=== PATIENT | male | born 1970 | race Caucasian/White ===

== ENCOUNTER → 2017-11-18 15:36 | Outpatient (REF) | payer MEDICAID, SELFPAY ==
[2017-11-18 18:24] LABS: Amphetamine/Metha Screen,Urine Negative ng/mL (<1000); Barbiturates Screen,Urine Negative ng/mL (<200); Benzodiazepines Screen,Urine Negative ng/mL (<200); Cannabinoid Screen,Urine Negative ng/mL (<50); Cocaine Screen,Urine Negative ng/mL (<300); Methadone Screen,Urine Negative ng/mL (<300); Opiate Screen,Urine Negative ng/mL (<300); Phencyclidine Screen,Urine Negative ng/mL (<25)
== END ==
LOC: LAB 15:36
PROVIDERS: Visit Provider Emergency Medicine
DX: Z79.899 Other long term (current) drug therapy (principal)
CPT/HCPCS: 80305

== ENCOUNTER → 2018-01-02 14:04 | Outpatient (CLI) | payer MEDICAID, SELFPAY ==
[2018-01-02 14:50] LABS: Amphetamine/Metha Screen,Urine Negative ng/mL (<1000); Barbiturates Screen,Urine Negative ng/mL (<200); Benzodiazepines Screen,Urine Negative ng/mL (<200); Cannabinoid Screen,Urine Negative ng/mL (<50); Cocaine Screen,Urine Negative ng/mL (<300); Methadone Screen,Urine Negative ng/mL (<300); Opiate Screen,Urine Negative ng/mL (<300); Phencyclidine Screen,Urine Negative ng/mL (<25)
[2018-01-10 11:08] LABS: Alprazolam Negative (Cutoff=100); Benzodiazepines Positive ng/mL (Cutoff=100); Clonazepam Negative (Cutoff=100); Flurazepam Negative (Cutoff=100); Lorazepam Positive (.); Midazolam Negative (Cutoff=100); Temazepam Negative (Cutoff=100); Triazolam Negative (Cutoff=100)
== END ==
PROVIDERS: Visit Provider Emergency Medicine
DX: Z79.899 Other long term (current) drug therapy (principal)
CPT/HCPCS: 80305; 80346

== ENCOUNTER → 2018-03-31 19:25 | Outpatient (CLI) | payer MEDICAID, SELFPAY ==
[2018-03-31 20:32] LABS: Amphetamine/Metha Screen,Urine Negative ng/mL (<1000); Barbiturates Screen,Urine Negative ng/mL (<200); Benzodiazepines Screen,Urine Negative ng/mL (<200); Cannabinoid Screen,Urine Negative ng/mL (<50); Cocaine Screen,Urine Negative ng/mL (<300); Methadone Screen,Urine Negative ng/mL (<300); Opiate Screen,Urine Negative ng/mL (<300); Phencyclidine Screen,Urine Negative ng/mL (<25)
[2018-04-07 15:16] LABS: Alprazolam Negative (Cutoff=100); Benzodiazepines Positive ng/mL (Cutoff=100); Clonazepam Negative (Cutoff=100); Flurazepam Negative (Cutoff=100); Lorazepam Positive (.); Midazolam Negative (Cutoff=100); Temazepam Negative (Cutoff=100); Triazolam Negative (Cutoff=100)
== END ==
PROVIDERS: Visit Provider Nurse Practitioner Family
DX: Z79.899 Other long term (current) drug therapy (principal)
CPT/HCPCS: 80305; 80346

== ENCOUNTER → 2018-07-07 13:43 | Outpatient (CLI) | payer MEDICAID, SELFPAY ==
[2018-07-07 14:26] LABS: Alanine Aminotransferase 33 U/L (12-78); Albumin Level 3.6 gm/dL (3.4-5.0); Albumin/Globulin Ratio 1.1 (1.1-1.8); Alkaline Phosphatase 67 U/L (46-116); Anion Gap 9.6 mEq/L (5-15); Aspartate Amino Transferase 15 U/L (15-37); Bilirubin,Total 0.4 mg/dL (0.2-1.0); Blood Urea Nitrogen 13 mg/dL (7-18); Carbon Dioxide 31 mmol/L (21.0-32.0); Chloride 99 mmol/L (98-107); Cholesterol 161 mg/dL (140-200); Creatinine,Serum 1.13 mg/dL (0.70-1.30); Estimated Glomerular Filt Rate 70 ml/min (>60); Free T4 (Free Thyroxine) 1.04 ng/dl (0.76-1.46); GFR (African American) 84 ML/MIN (>60); Globulin 3.2 gm/dl (1.3-3.2); Glucose 102 mg/dL (74-106); HDL Cholesterol 27 mg/dL (27-67); LDL Cholesterol 76 mg/dL (0-130); Potassium 4.6 mmoL/L (3.5-5.1); Sodium 135 mmol/L (136-145); Thyroid Stimulating Hormone 2.27 uIU/ml (0.358-3.740); Total Protein,Serum 6.8 gm/dL (6.4-8.2); Triglycerides 290 mg/dL (30-200); VLDL Cholesterol 58 mg/dL (0-40)
[2018-07-07 15:43] LABS: Amphetamine/Metha Screen,Urine Negative ng/mL (<1000); Barbiturates Screen,Urine Negative ng/mL (<200); Basophils # 0.1 K/mm3 (0-0.2); Basophils % 0.7 % (0.1-2.0); Benzodiazepines Screen,Urine Negative ng/mL (<200); Cannabinoid Screen,Urine Negative ng/mL (<50); Cocaine Screen,Urine Negative ng/mL (<300); Eosinophils # 0.1 K/mm3 (0.0-0.4); Eosinophils % 1.8 % (0.1-12.0); Hematocrit 49.6 % (42.0-52.0); Hemoglobin 16.6 g/dL (14.1-18.0); Lymphocytes % 28.1 % (10-50); Mean Corpuscular HGB Conc 33.6 g/dL (31.8-35.4); Mean Corpuscular Volume 89.3 fl (80-94); Mean Platelet Volume 8.7 fl (7.4-10.4); Methadone Screen,Urine Negative ng/mL (<300); Monocytes # 0.3 K/mm3 (0.1-1.0); Monocytes % 4.8 % (1.7-9.3); Neutrophils # 4.6 K/mm3 (1.8-7.8); Neutrophils % 64.6 % (37.0-80.0); Opiate Screen,Urine Negative ng/mL (<300); Phencyclidine Screen,Urine Negative ng/mL (<25); Platelet Count 312 K/mm3 (142-424); Red Blood Count 5.55 M/mm3 (4.60-6.20); Red Cell Distribution Width 13.3 % (11.5-17.5)
[2018-07-08 10:07] LABS: Vitamin D 25 Hydroxy 13.7 ng/mL (30.0-100.0)
== END ==
PROVIDERS: Visit Provider Emergency Medicine
DX: R53.83 Other fatigue (principal); Z79.899 Other long term (current) drug therapy
CPT/HCPCS: 80053; 80061; 80305; 82652; 84439; 84443; 85025

== ENCOUNTER → 2019-08-17 14:07 | Outpatient (CLI) | payer MEDICAID, SELFPAY ==
[2019-08-17 15:15] VITALS: PULSE 78; PULSE 80
== END ==
PROVIDERS: PCP Emergency Medicine; Visit Provider Emergency Medicine
DX: R06.02 Shortness of breath (principal)
CPT/HCPCS: 94060; 94640; 94727; 94729

== ENCOUNTER → 2019-09-27 17:50 | Outpatient (CLI) | payer MEDICAID, SELFPAY ==
[2019-09-27 19:32] LABS: Basophils % 0.5 % (0.1-2.0); Eosinophils # 0.1 K/mm3 (0.0-0.4); Eosinophils % 1.8 % (0.1-12.0); Hematocrit 44.4 % (42.0-52.0); Hemoglobin 15.7 g/dL (14.1-18.0); Lymphocytes % 33.1 % (10-50); Mean Corpuscular HGB Conc 35.5 g/dL (31.8-35.4); Mean Corpuscular Hemoglobin 31.9 pg (27.0-31.2); Mean Corpuscular Volume 89.9 fl (80-94); Mean Platelet Volume 10.1 fl (7.4-10.4); Monocytes # 0.3 K/mm3 (0.1-1.0); Monocytes % 4.6 % (1.7-9.3); Neutrophils # 3.6 K/mm3 (1.8-7.8); Platelet Count 275 K/mm3 (142-424); Red Blood Count 4.94 M/mm3 (4.60-6.20); Red Cell Distribution Width 13.8 % (11.5-17.5); White Blood Count 6.1 K/mm3 (4.8-10.8)
[2019-09-27 20:24] LABS: Alanine Aminotransferase 48 U/L (12-78); Albumin Level 4.5 g/dl (3.5-5.0); Albumin/Globulin Ratio 1.5 (1.1-1.8); Alkaline Phosphatase 77 U/L (38-126); Anion Gap 14.1 mEq/L (5-15); Aspartate Amino Transferase 43 U/L (17-59); Bilirubin,Total 0.4 mg/dl (0.2-1.3); Blood Urea Nitrogen 18 mg/dl (9-20); Calcium 10.8 mg/dl (8.4-10.2); Carbon Dioxide 30 mmol/L (22.0-30.0); Chloride 100 mmol/L (98-107); Chol/HDL Ratio 5.6 (1-3.5); Cholesterol 178 mg/dl (140-200); Estimated Glomerular Filt Rate 80 ml/min (>60); GFR (African American) 97 ML/MIN (>60); Glucose 103 mg/dl (74-100); HDL Cholesterol 32 mg/dl (40-60); Potassium 5.1 mmoL/L (3.5-5.1); Sodium 139 mmol/L (136-145); Total Protein,Serum 7.5 g/dl (6.3-8.2); Triglycerides 241 mg/dl (30-150); VLDL Cholesterol 48 mg/dL (0-40)
[2019-09-27 20:35] LABS: Direct LDL Cholesterol 112.89 mg/dL (100-129)
[2019-09-27 20:41] LABS: T4 (Thyroxine) 10.2 ug/dl (5.53-11.0)
[2019-09-27 20:51] LABS: 25-OH Vitamin D, Total 38.6 ng/mL (30-100)
[2019-09-27 20:54] LABS: Thyroid Stimulating Hormone 1.71 uIU/mL (0.465-4.68)
== END ==
PROVIDERS: Visit Provider Emergency Medicine
DX: J44.9 Chronic obstructive pulmonary disease, unspecified (principal); R53.83 Other fatigue; Z79.899 Other long term (current) drug therapy
CPT/HCPCS: 80053; 80061; 82306; 84436; 84443; 85025

== ENCOUNTER → 2020-03-22 19:11 | Outpatient (CLI) | payer MEDICAID, SELFPAY ==
[2020-03-22 19:41] LABS: Amphetamine/Metha Screen,Urine Negative ng/ml (<1000)
[2020-03-22 19:42] LABS: Barbiturates Screen,Urine Negative ng/ml (<200); Benzodiazepines Screen,Urine Negative ng/ml (<200)
[2020-03-22 19:43] LABS: Cannabinoid Screen,Urine Negative ng/ml (<50)
[2020-03-22 19:44] LABS: Cocaine Screen,Urine Negative ng/ml (<300); Methadone Screen,Urine Negative ng/ml (<300)
[2020-03-22 19:45] LABS: Opiate Screen,Urine Positive ng/ml (<300); Phencyclidine Screen,Urine Negative ng/ml (<25)
== END ==
PROVIDERS: Visit Provider Emergency Medicine
DX: F41.9 Anxiety disorder, unspecified (principal); Z79.899 Other long term (current) drug therapy
CPT/HCPCS: 80305

== ENCOUNTER → 2020-08-14 17:31 | Outpatient (CLI) | payer MEDICAID, SELFPAY ==
[2020-08-14 19:07] LABS: Amphetamine/Metha Screen,Urine Negative ng/ml (<1000); Barbiturates Screen,Urine Negative ng/ml (<200)
[2020-08-14 19:08] LABS: Benzodiazepines Screen,Urine Negative ng/ml (<200)
[2020-08-14 19:09] LABS: Cannabinoid Screen,Urine Negative ng/ml (<50); Cocaine Screen,Urine Negative ng/ml (<300)
[2020-08-14 19:10] LABS: Methadone Screen,Urine Negative ng/ml (<300)
[2020-08-14 19:11] LABS: Opiate Screen,Urine Positive ng/ml (<300); Phencyclidine Screen,Urine Negative ng/ml (<25)
== END ==
PROVIDERS: Visit Provider Emergency Medicine
DX: Z79.899 Other long term (current) drug therapy (principal)
CPT/HCPCS: 80305

== ENCOUNTER 2020-08-23 11:00 | Outpatient (RCR) | payer MEDICAID, SELFPAY | END 2020-09-18 14:31 | disposition home or self-care (01) | LOC: PT.CARL 11:00 | PROVIDERS: PCP Emergency Medicine; Visit Provider Pain Medicine Interventional Pain Medicine | DX: M47.816 Spondylosis without myelopathy or radiculopathy, lumbar region (principal); M25.561 Pain in right knee; M25.551 Pain in right hip | CPT/HCPCS: 97110; 97163 ==

== ENCOUNTER → 2020-11-10 13:48 | Outpatient (CLI) | payer MEDICAID, SELFPAY ==
[2020-11-10 13:57] LABS: Basophils # 0.1 K/mm3 (0-0.2); Basophils % 1.1 % (0.1-2.0); Eosinophils # 0.1 K/mm3 (0.0-0.4); Eosinophils % 1.8 % (0.1-12.0); Hematocrit 47.5 % (42.0-52.0); Hemoglobin 15.8 g/dL (14.1-18.0); Lymphocytes # 2.5 K/mm3 (0.7-4.5); Lymphocytes % 39.4 % (10-50); Mean Corpuscular HGB Conc 33.3 g/dL (31.8-35.4); Mean Corpuscular Hemoglobin 31.3 pg (27.0-31.2); Mean Corpuscular Volume 94.1 fl (80-94); Mean Platelet Volume 9.8 fl (7.4-10.4); Monocytes # 0.4 K/mm3 (0.1-1.0); Monocytes % 6.3 % (1.7-9.3); Neutrophils # 3.3 K/mm3 (1.8-7.8); Neutrophils % 51.4 % (37.0-80.0); Platelet Count 298 K/mm3 (142-424); Red Blood Count 5.04 M/mm3 (4.60-6.20); Red Cell Distribution Width 14.3 % (11.5-17.5); White Blood Count 6.4 K/mm3 (4.8-10.8)
[2020-11-10 14:02] LABS: Alanine Aminotransferase 56 U/L (12-78); Albumin Level 4.1 g/dl (3.5-5.0); Albumin/Globulin Ratio 1.3 (1.1-1.8); Alkaline Phosphatase 74 U/L (38-126); Anion Gap 16.8 mEq/L (5-15); Aspartate Amino Transferase 48 U/L (17-59); Bilirubin,Total 0.4 mg/dl (0.2-1.3); Blood Urea Nitrogen 15 mg/dl (9-20); Calcium 9.5 mg/dl (8.4-10.2); Carbon Dioxide 26 mmol/L (22.0-30.0); Chloride 100 mmol/L (98-107); Cholesterol 195 mg/dl (140-200); Estimated Glomerular Filt Rate 79 ml/min (>60); GFR (African American) 96 ML/MIN (>60); Globulin 3.1 g/dL (1.3-3.2); Glucose 118 mg/dl (74-100); HDL Cholesterol 28 mg/dl (40-60); Potassium 4.8 mmoL/L (3.5-5.1); Sodium 138 mmol/L (136-145); Total Protein,Serum 7.2 g/dl (6.3-8.2); Triglycerides 209 mg/dl (30-150); VLDL Cholesterol 42 mg/dL (0-40)
[2020-11-10 14:11] LABS: Amphetamine/Metha Screen,Urine Negative ng/ml (<1000)
[2020-11-10 14:12] LABS: Barbiturates Screen,Urine Negative ng/ml (<200); Benzodiazepines Screen,Urine Negative ng/ml (<200)
[2020-11-10 14:13] LABS: Cannabinoid Screen,Urine Negative ng/ml (<50); Cocaine Screen,Urine Negative ng/ml (<300)
[2020-11-10 14:14] LABS: Methadone Screen,Urine Negative ng/ml (<300)
[2020-11-10 14:15] LABS: Opiate Screen,Urine Positive ng/ml (<300); Phencyclidine Screen,Urine Negative ng/ml (<25)
[2020-11-10 14:20] LABS: 25-OH Vitamin D, Total 30.7 ng/mL (30-100)
[2020-11-10 14:33] LABS: Prostate Specific Ag Screen 1.1 ng/ml (0.0-4.0); Thyroid Stimulating Hormone 2.01 uIU/mL (0.465-4.68)
== END ==
PROVIDERS: Visit Provider Emergency Medicine
DX: F41.9 Anxiety disorder, unspecified (principal); J44.9 Chronic obstructive pulmonary disease, unspecified; E66.9 Obesity, unspecified; R53.83 Other fatigue; M54.9 Dorsalgia, unspecified; Z12.5 Encounter for screening for malignant neoplasm of prostate; Z68.33 Body mass index [BMI] 33.0-33.9, adult
CPT/HCPCS: 80053; 80061; 80305; 82306; 84436; 84443; 85025; G0103

== ENCOUNTER → 2020-11-14 10:13 | Outpatient (CLI) | payer MEDICAID, SELFPAY ==
--- NOTE | 2020-11-14 10:15 | MR_ITS ---
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 3-D MIP and myelographic images are also rendered and reviewed FINDINGS: There is normal alignment. The spinal cord ends at the T12 level. T11-T12: Mild degenerative disc disease. T12-L1: Mild degenerative disc disease with small anterior osteophytes. L1-L2: Unremarkable. L2-L3: Minimal bulging disc with mild facet and ligamentum hypertrophic change with mild bilateral foraminal narrowing not significantly changed. L3-L4: Mild facet and ligamentum hypertrophy not significantly changed. L4-5: Mild bulging disc with facet and ligamentum hypertrophic change. Annular fissure noted. Minimal retrolisthesis of L4 of 3 mm. The bulging disc is slightly eccentric toward the left. There is mild facet and ligamentum hypertrophic change with mild left-sided foraminal narrowing. There is mild broad-based central disc protrusion. Overall not significantly changed. L5-S1: Mild bulging disc slightly eccentric toward the right with moderate right-sided foraminal narrowing which is slightly increased compared to the previous exam.. There is mild facet and ligamentum hypertrophic change. There is mild left-sided foraminal narrowing as well. No extruded herniated disc or bony canal stenosis. IMPRESSION: 1. L2-L3: Minimal bulging disc with mild facet and ligamentum hypertrophic change with mild bilateral foraminal narrowing not significantly changed. 2. L3-L4: Mild facet and ligamentum hypertrophy not significantly changed. 3. L4-5: Mild bulging disc with facet and ligamentum hypertrophic change. Annular fissure noted. Minimal retrolisthesis of L4 of 3 mm. The bulging disc is slightly eccentric toward the left. There is mild facet and ligamentum hypertrophic change with mild left-sided foraminal narrowing. There is mild broad-based central disc protrusion. Overall not significantly changed. 4. L5-S1: Mild bulging disc slightly eccentric toward the right with moderate right-sided foraminal narrowing which is slightly increased compared to the previous exam.. There is mild facet and ligamentum hypertrophic change. There is mild left-sided foraminal narrowing as well. 5. No extruded herniated disc or bony canal stenosis. Dictated by: Misael Chavira MD 11/15/2020 07:38 Misael Chavira MD in [place] 11/15/2020 07:38
== END ==
PROVIDERS: PCP Emergency Medicine; Visit Provider Pain Medicine Interventional Pain Medicine
DX: M47.816 Spondylosis without myelopathy or radiculopathy, lumbar region (principal)
CPT/HCPCS: 72148; 76376

== ENCOUNTER → 2021-01-08 14:55 | Outpatient (CLI) | payer MEDICAID, SELFPAY ==
[2021-01-08 21:50] LABS: Amphetamine/Metha Screen,Urine Negative ng/ml (<1000); Benzodiazepines Screen,Urine Negative ng/ml (<200)
[2021-01-08 21:51] LABS: Barbiturates Screen,Urine Negative ng/ml (<200)
[2021-01-08 21:52] LABS: Cannabinoid Screen,Urine Negative ng/ml (<50); Cocaine Screen,Urine Negative ng/ml (<300)
[2021-01-08 21:53] LABS: Methadone Screen,Urine Negative ng/ml (<300); Opiate Screen,Urine Positive ng/ml (<300)
[2021-01-08 21:54] LABS: Phencyclidine Screen,Urine Negative ng/ml (<25)
== END ==
PROVIDERS: Visit Provider Emergency Medicine
DX: Z79.899 Other long term (current) drug therapy (principal)
CPT/HCPCS: 80305

== ENCOUNTER → 2021-02-06 14:14 | Outpatient (CLI) | payer MEDICAID, SELFPAY ==
[2021-02-06 15:07] LABS: Amphetamine/Metha Screen,Urine Negative ng/ml (<1000); Barbiturates Screen,Urine Negative ng/ml (<200)
[2021-02-06 15:08] LABS: Benzodiazepines Screen,Urine Negative ng/ml (<200); Cannabinoid Screen,Urine Negative ng/ml (<50)
[2021-02-06 15:09] LABS: Cocaine Screen,Urine Negative ng/ml (<300)
[2021-02-06 15:10] LABS: Methadone Screen,Urine Negative ng/ml (<300); Opiate Screen,Urine Positive ng/ml (<300)
[2021-02-06 15:11] LABS: Phencyclidine Screen,Urine Negative ng/ml (<25)
== END ==
PROVIDERS: Visit Provider Emergency Medicine
DX: F41.9 Anxiety disorder, unspecified (principal)
CPT/HCPCS: 80305

== ENCOUNTER → 2021-07-31 11:12 | Outpatient (CLI) | payer MEDICAID, SELFPAY ==
[2021-07-31 14:00] LABS: Opiate Screen,Urine Positive ng/ml (<300); Phencyclidine Screen,Urine Negative ng/ml (<25)
[2021-07-31 14:17] LABS: Amphetamine/Metha Screen,Urine Negative ng/ml (<1000)
[2021-07-31 14:18] LABS: Barbiturates Screen,Urine Negative ng/ml (<200)
[2021-07-31 14:19] LABS: Benzodiazepines Screen,Urine Negative ng/ml (<200)
[2021-07-31 14:20] LABS: Cannabinoid Screen,Urine Negative ng/ml (<50); Cocaine Screen,Urine Negative ng/ml (<300)
[2021-07-31 14:22] LABS: Methadone Screen,Urine Negative ng/ml (<300)
== END ==
PROVIDERS: PCP Emergency Medicine; Visit Provider Emergency Medicine
DX: R10.9 Unspecified abdominal pain (principal); M79.606 Pain in leg, unspecified; G89.29 Other chronic pain
CPT/HCPCS: 80305; 87086

== ENCOUNTER → 2021-10-05 11:00 | Outpatient (CLI) | payer MEDICAID, SELFPAY ==
[2021-10-05 15:35] LABS: Amphetamine/Metha Screen,Urine Negative ng/ml (<1000)
[2021-10-05 15:36] LABS: Barbiturates Screen,Urine Negative ng/ml (<200)
[2021-10-05 15:37] LABS: Benzodiazepines Screen,Urine Negative ng/ml (<200); Cannabinoid Screen,Urine Negative ng/ml (<50)
[2021-10-05 15:38] LABS: Cocaine Screen,Urine Negative ng/ml (<300); Methadone Screen,Urine Negative ng/ml (<300)
[2021-10-05 15:39] LABS: Opiate Screen,Urine Positive ng/ml (<300)
[2021-10-05 15:40] LABS: Phencyclidine Screen,Urine Negative ng/ml (<25)
== END ==
PROVIDERS: PCP Nurse Practitioner Family; Visit Provider Nurse Practitioner Family
DX: M54.50 Low back pain, unspecified (principal); G89.29 Other chronic pain; M79.604 Pain in right leg; M79.605 Pain in left leg
CPT/HCPCS: 80305; 87086

== ENCOUNTER → 2021-10-09 10:00 | Outpatient (CLI) | payer MEDICAID, SELFPAY ==
[2021-10-09 10:49] LABS: Basophils # 0.1 K/mm3 (0-0.2); Eosinophils # 0.1 K/mm3 (0.0-0.4); Eosinophils % 2.5 % (0.1-12.0); Hematocrit 48.6 % (42.0-52.0); Hemoglobin 14.9 g/dL (14.1-18.0); Lymphocytes % 38.5 % (10-50); Mean Corpuscular HGB Conc 30.6 g/dL (31.8-35.4); Mean Corpuscular Hemoglobin 29.8 pg (27.0-31.2); Mean Corpuscular Volume 97.2 fl (80-94); Mean Platelet Volume 8.7 fl (7.4-10.4); Monocytes # 0.3 K/mm3 (0.1-1.0); Monocytes % 5.3 % (1.7-9.3); Neutrophils # 2.7 K/mm3 (1.8-7.8); Neutrophils % 52.7 % (37.0-80.0); Platelet Count 268 K/mm3 (142-424); White Blood Count 5.1 K/mm3 (4.8-10.8)
[2021-10-09 11:24] LABS: Alanine Aminotransferase 39 U/L (12-78); Albumin Level 3.8 g/dl (3.5-5.0); Albumin/Globulin Ratio 1.5 (1.1-1.8); Alkaline Phosphatase 87 U/L (38-126); Anion Gap 11.3 mEq/L (5-15); Aspartate Amino Transferase 39 U/L (17-59); Bilirubin,Total 0.2 mg/dl (0.2-1.3); Blood Urea Nitrogen 11 mg/dl (9-20); Calcium 9.5 mg/dl (8.4-10.2); Carbon Dioxide 29 mmol/L (22.0-30.0); Chloride 102 mmol/L (98-107); Chol/HDL Ratio 6.7 (1-3.5); Cholesterol 175 mg/dl (140-200); Estimated Glomerular Filt Rate 79 ml/min (>60); GFR (African American) 96 ML/MIN (>60); Globulin 2.5 g/dL (1.3-3.2); Glucose 93 mg/dl (74-100); HDL Cholesterol 26 mg/dl (40-60); Potassium 4.3 mmoL/L (3.5-5.1); Sodium 138 mmol/L (136-145); Total Protein,Serum 6.3 g/dl (6.3-8.2); Triglycerides 212 mg/dl (30-150); VLDL Cholesterol 42 mg/dL (0-40)
[2021-10-09 11:41] LABS: 25-OH Vitamin D, Total 30.4 ng/mL (30-100)
[2021-10-10 13:46] LABS: Direct LDL Cholesterol 108 mg/dL (100-129)
== END ==
PROVIDERS: PCP Emergency Medicine; Visit Provider Nurse Practitioner Family
DX: M79.605 Pain in left leg (principal); M79.604 Pain in right leg; J01.00 Acute maxillary sinusitis, unspecified; J44.9 Chronic obstructive pulmonary disease, unspecified; E66.9 Obesity, unspecified; F41.9 Anxiety disorder, unspecified; Z68.33 Body mass index [BMI] 33.0-33.9, adult; Z72.0 Tobacco use
CPT/HCPCS: 36415; 80053; 80061; 82306; 84443; 85025

== ENCOUNTER → 2021-10-27 13:52 | Outpatient (CLI) | payer MEDICAID, SELFPAY ==
--- NOTE | 2021-11-02 14:26 | PC.NURSE ---
Patient registered for HST device on 10/27/21 - brought device back on 11/02/21 - patient states he did not use device - unable - no charge to patient - ordering provider notified....
== END ==
PROVIDERS: PCP Emergency Medicine; Visit Provider Nurse Practitioner Family
DX: G47.33 Obstructive sleep apnea (adult) (pediatric) (principal)

== ENCOUNTER → 2021-11-30 14:43 | Outpatient (CLI) | payer MEDICAID, SELFPAY ==
[2021-11-30 14:24] LABS: Amphetamine/Metha Screen,Urine Negative ng/ml (<1000)
[2021-11-30 14:25] LABS: Barbiturates Screen,Urine Negative ng/ml (<200)
[2021-11-30 14:26] LABS: Benzodiazepines Screen,Urine Negative ng/ml (<200); Cannabinoid Screen,Urine Negative ng/ml (<50)
[2021-11-30 14:27] LABS: Cocaine Screen,Urine Negative ng/ml (<300); Methadone Screen,Urine Negative ng/ml (<300)
[2021-11-30 14:28] LABS: Opiate Screen,Urine Positive ng/ml (<300)
[2021-11-30 14:29] LABS: Phencyclidine Screen,Urine Negative ng/ml (<25)
== END ==
PROVIDERS: PCP Nurse Practitioner Family; Visit Provider Nurse Practitioner Family
DX: Z79.899 Other long term (current) drug therapy (principal)
CPT/HCPCS: 80305

== ENCOUNTER → 2022-01-17 12:57 | Outpatient (CLI) | payer MEDICAID, SELFPAY ==
[2022-01-17 13:35] VITALS: PULSE 71; PULSE 72
--- NOTE | 2022-01-17 14:23 | CT_ITS ---
FINAL REPORT CLINICAL HISTORY: lung cancer screening Patient smokes a half pack of cigarettes a day. He has been smoking for 30 years. No cancer diagnosis to date. No chest surgeries. FINDINGS: Low-Dose Chest CT Axial images were obtained from the lung apex to the mid abdomen by computed tomography. Low-dose protocol was utilized. CTDI vol (mGy): 2.90 DLP (mGy-cm): 113.33 There is no axillary adenopathy. There is no hilar adenopathy. There are scattered calcified lymph nodes in mediastinum. The heart is proper size. There is no pericardial or pleural effusion. Lung window images demonstrate no suspicious infiltrate or nodule. There are changes of centrilobular emphysema in the right lung apex. Limited images of the upper abdomen are unremarkable. IMPRESSION: No suspicious infiltrate or nodule is identified. Lung RADS category 1. Recommend 12 month follow-up low-dose chest CT. Reviewed, Interpreted and Dictated by Quentin Archuleta MD Transcribed by Jody Jalloh Authenticated and [facility]
== END ==
PROVIDERS: PCP Nurse Practitioner Family; Visit Provider Internal Medicine Pulmonary Disease
DX: R06.09 Other forms of dyspnea (principal); F17.210 Nicotine dependence, cigarettes, uncomplicated
CPT/HCPCS: 71271; 94060; 94618; 94640; 94727; 94729

== ENCOUNTER → 2022-02-14 11:57 | Outpatient (CLI) | payer MEDICAID, SELFPAY | PROVIDERS: PCP Emergency Medicine; Visit Provider Nurse Practitioner Family | DX: G47.33 Obstructive sleep apnea (adult) (pediatric) (principal); R06.83 Snoring | CPT/HCPCS: 95806; G0399 ==

== ENCOUNTER → 2022-04-23 15:12 | Outpatient (CLI) | payer MEDICAID, SELFPAY ==
--- NOTE | 2022-04-23 15:12 | CT_ITS ---
FINAL REPORT TECHNIQUE: High-resolution supine inspiration and expiration and prone inspiration CT images were obtained and reviewed. CLINICAL HISTORY: COPD, scarring in lungs, soa, occasional chest pain COMPARISON: 01/17/2022 FINDINGS: There is no axillary adenopathy. There is no hilar or mediastinal adenopathy. Heart size is normal. There is no pericardial or pleural effusion. There are mild changes of emphysema. Mild right apical scarring is identified. There is no evidence of interstitial lung disease or bronchiectasis. There is no evidence of airway trapping. Limited images of the upper abdomen reveal fatty liver. No suspicious infiltrate or nodule is identified. IMPRESSION: Mild changes of emphysema. Mild apical scarring. No evidence of interstitial lung disease. Reviewed, Interpreted and Dictated by Patrick Coughlin III, MD Transcribed by Geeta Varma Authenticated and [facility]
== END ==
PROVIDERS: PCP Emergency Medicine; Visit Provider Internal Medicine Pulmonary Disease
DX: J84.9 Interstitial pulmonary disease, unspecified (principal)
CPT/HCPCS: 71250

== ENCOUNTER → 2022-04-30 15:47 | Outpatient (CLI) | payer MEDICAID, SELFPAY ==
[2022-04-30 17:14] LABS: Creatine Kinase 145 U/L (55-170); Uric Acid 6.1 mg/dl (3.5-8.5)
[2022-04-30 17:19] LABS: C-Reactive Protein 2.2 mg/L (0-4)
[2022-04-30 17:23] LABS: Erythrocyte Sedimentation Rate 13 mm/hr (0-20)
[2022-05-02 12:28] LABS: RA Latex Turbid. <10.0 IU/mL (<14.0)
[2022-05-02 17:20] LABS: Aldolase 10.7 U/L (3.3-10.3); Anti-DNA (DS) Ab Qn 1 IU/mL (0-9); Cytoplasmic (C-ANCA) <1:20 titer (Neg:<1:20); Perinuclear (P-ANCA) <1:20 titer (Neg:<1:20)
[2022-05-03 11:24] LABS: Antinuclear Antibodies, IFA Negative (.)
[2022-05-09 23:31] LABS: Antinuclear Antibodies (ANA) NEGATIVE
== END ==
PROVIDERS: PCP Emergency Medicine; Visit Provider Internal Medicine Pulmonary Disease
DX: R06.09 Other forms of dyspnea (principal); J84.9 Interstitial pulmonary disease, unspecified
CPT/HCPCS: 36415; 82085; 82550; 84550; 85651; 86038; 86140; 86225; 86256; 86431

== ENCOUNTER → 2022-05-10 13:59 | Outpatient (CLI) | payer MEDICAID, SELFPAY ==
[2022-05-10 16:09] LABS: Benzodiazepines Screen,Urine Negative ng/ml (<200)
[2022-05-10 16:10] LABS: Amphetamine/Metha Screen,Urine Negative ng/ml (<1000); Barbiturates Screen,Urine Negative ng/ml (<200)
[2022-05-10 16:11] LABS: Cannabinoid Screen,Urine Negative ng/ml (<50)
[2022-05-10 16:12] LABS: Cocaine Screen,Urine Negative ng/ml (<300); Methadone Screen,Urine Negative ng/ml (<300)
[2022-05-10 16:13] LABS: Opiate Screen,Urine Positive ng/ml (<300)
[2022-05-10 16:14] LABS: Phencyclidine Screen,Urine Negative ng/ml (<25)
== END ==
PROVIDERS: PCP Nurse Practitioner Family; Visit Provider Nurse Practitioner Family
DX: Z79.899 Other long term (current) drug therapy (principal)
CPT/HCPCS: 80305

== ENCOUNTER → 2022-08-22 15:02 | Outpatient (CLI) | payer MEDICAID, SELFPAY | PROVIDERS: PCP Nurse Practitioner Family; Visit Provider Internal Medicine Pulmonary Disease | DX: R94.2 Abnormal results of pulmonary function studies (principal); R06.02 Shortness of breath | CPT/HCPCS: 94010 ==

== ENCOUNTER 2022-09-10 11:00 | Outpatient (RCR) | payer MEDICAID, SELFPAY | END 2022-10-10 11:55 | disposition home or self-care (01) | LOC: PT 11:00 | PROVIDERS: PCP Nurse Practitioner Family; Visit Provider Nurse Practitioner Family | DX: M54.16 Radiculopathy, lumbar region (principal) | CPT/HCPCS: 97010; 97014; 97110; 97140; 97163; G0283 ==

== ENCOUNTER → 2022-09-24 14:12 | Outpatient (CLI) | payer MEDICAID, SELFPAY ==
--- NOTE | 2022-09-24 14:12 | MR_ITS ---
FINAL REPORT CLINICAL HISTORY: Low Back pain with right sided pain x 11 years COMPARISON: 11/14/2020 FINDINGS: Multiplanar MR imaging of the lumbar spine was performed without contrast. On the sagittal T2-weighted images, disc degeneration is seen at multiple levels. There is 5 mm of anterolisthesis of L5 on S1. There is no evidence of fracture. No bony mass is identified. The conus has an unremarkable appearance. T12-L1: An annular bulge is present. There is no evidence of significant canal stenosis or neural foraminal narrowing. L1-2: An annular bulge is present. There is no significant canal stenosis or neural foraminal narrowing. L2-3: An annular bulge is present. There is no significant canal stenosis. There is mild bilateral neural foraminal narrowing. L3-4: An annular bulge is present. There is mild bilateral neural foraminal stenosis without significant canal narrowing. L4-5: An annular bulge is present. There is mild bilateral neural foraminal narrowing without evidence of canal stenosis. L5-S1: An annular bulge is present with facet osteoarthropathy. There is moderate bilateral neural foraminal narrowing but no significant canal stenosis present. IMPRESSION: Multilevel degenerative disc disease and spondylosis as described. No significant changes noted since the prior MRI of October 2020. Reviewed, Interpreted and Dictated by Patrick Coughlin III, MD Transcribed by Sharon Ambrocio Authenticated and [facility]
== END ==
PROVIDERS: PCP Nurse Practitioner Family; Visit Provider Nurse Practitioner Family
DX: M54.16 Radiculopathy, lumbar region (principal)
CPT/HCPCS: 72148; 76376

== ENCOUNTER → 2022-10-31 12:23 | Outpatient (CLI) | payer MEDICAID, SELFPAY ==
--- NOTE | 2022-10-31 12:32 | XR_ITS ---
FINAL REPORT CLINICAL HISTORY: R Hip pain hip surgery at age 14 COMPARISON: None FINDINGS: RIGHT HIP Two views of the right hip demonstrate no acute fracture or dislocation. There are postoperative changes in the right proximal femur. There are mild degenerative changes in both hips. The visualized bony structures are well aligned. No soft tissue abnormality is seen. IMPRESSION: Postoperative and degenerative changes without acute bony abnormality. Reviewed, Interpreted and Dictated by Patrick Coughlin III, MD Transcribed by Marj Jain Authenticated and [facility]
== END ==
PROVIDERS: PCP Nurse Practitioner Family; Visit Provider Nurse Practitioner Family
DX: M25.551 Pain in right hip (principal)
CPT/HCPCS: 73502

== ENCOUNTER → 2023-02-14 15:03 | Outpatient (CLI) | payer MEDICAID, SELFPAY ==
[2023-02-14 15:18] LABS: Basophils # 0.1 K/mm3 (0-0.2); Basophils % 0.7 % (0.1-2.0); Eosinophils # 0.1 K/mm3 (0.0-0.4); Eosinophils % 1.6 % (0.1-12.0); Hematocrit 48.5 % (42.0-52.0); Hemoglobin 16.4 g/dL (14.1-18.0); Lymphocytes # 2.2 K/mm3 (0.7-4.5); Lymphocytes % 32.5 % (10-50); Mean Corpuscular HGB Conc 33.9 g/dL (31.8-35.4); Mean Corpuscular Hemoglobin 30.6 pg (27.0-31.2); Mean Corpuscular Volume 90.3 fl (80-94); Mean Platelet Volume 8.4 fl (7.4-10.4); Monocytes # 0.3 K/mm3 (0.1-1.0); Monocytes % 4.5 % (1.7-9.3); Neutrophils # 4.1 K/mm3 (1.8-7.8); Neutrophils % 60.6 % (37.0-80.0); Platelet Count 274 K/mm3 (142-424); Red Blood Count 5.37 M/mm3 (4.60-6.20); Red Cell Distribution Width 13.7 % (11.5-17.5); White Blood Count 6.8 K/mm3 (4.8-10.8)
[2023-02-14 16:12] LABS: Alanine Aminotransferase 46 U/L (12-78); Albumin Level 4.4 g/dl (3.5-5.0); Alkaline Phosphatase 65 U/L (38-126); Anion Gap 9.9 mEq/L (5-15); Aspartate Amino Transferase 48 U/L (17-59); Bilirubin,Direct 0.1 mg/dl (0.0-0.4); Bilirubin,Indirect 0.3 mg/dL (0.0-0.9); Bilirubin,Total 0.4 mg/dl (0.2-1.3); Bilirubin,Unconjugated 0.3 mg/dL (0.0-1.1); Blood Urea Nitrogen 12 mg/dl (9-20); Calcium 9.7 mg/dl (8.4-10.2); Carbon Dioxide 31 mmol/L (22.0-30.0); Chloride 98 mmol/L (98-107); Chol/HDL Ratio 8.5 (1-3.5); Cholesterol 195 mg/dl (140-200); Estimated Glomerular Filt Rate 70 ml/min (>60); GFR (African American) 85 ML/MIN (>60); Glucose 88 mg/dl (74-100); HDL Cholesterol 23 mg/dl (40-60); Potassium 4.9 mmoL/L (3.5-5.1); Sodium 134 mmol/L (136-145); Total Protein,Serum 7.2 g/dl (6.3-8.2); Triglycerides 261 mg/dl (30-150); VLDL Cholesterol 52 mg/dL (0-40)
[2023-02-14 16:24] LABS: Direct LDL Cholesterol 126.76 mg/dL (100-129)
[2023-02-14 16:29] LABS: Free T4 (Free Thyroxine) 1.33 ng/dl (0.78-2.19)
== END ==
LOC: LAB 15:05
PROVIDERS: PCP Nurse Practitioner Family; Visit Provider Nurse Practitioner
DX: R06.09 Other forms of dyspnea (principal); R07.89 Other chest pain; R94.31 Abnormal electrocardiogram [ECG] [EKG]; I63.9 Cerebral infarction, unspecified; J44.9 Chronic obstructive pulmonary disease, unspecified; K21.9 Gastro-esophageal reflux disease without esophagitis; G47.33 Obstructive sleep apnea (adult) (pediatric); E11.9 Type 2 diabetes mellitus without complications; Z72.0 Tobacco use; I11.9 Hypertensive heart disease without heart failure
CPT/HCPCS: 36415; 80048; 80061; 80076; 84439; 84443; 85025

== ENCOUNTER 2023-02-21 12:11 | Outpatient (CLI) | payer MEDICAID, SELFPAY ==
--- NOTE | 2023-02-21 | CA_ITS ---
APPROVED REPORT Exam: Pharmacologic Technologist: Emily Tony, Ht: 6 ft 2 in Wt: 260 lbs BSA: 2.43 m2 HR: 76 bpm BP: 105/79 mmHg Rhythm: NSR, ST-T abns inferiorly Medical History Medications: Lorazepam,,,,, Aspirin,,,,, Gabapentin,,,,, Pantoprazole,,,,, Nicotine,,,,, SyMBICORT,,,,, Albuterol,,,,, LoraTADINE,,,,, Singulair,,,,, Vraylar,,,,, Hydrocodone Acetaminophen,,,,, BisOPROLOL - HCTZ,,,,, Cardiac Risk Factors: HTN, FHX of CAD, Smoking Stress Test Details Test: LEXISCAN HR Resting HR: 76 bpm Max Heart Rate (APMHR): 168 bpm Max HR Achieved: 100 bpm Target HR (85% APMHR): 143 bpm % of APMHR: 60 Recovery HR: 82 bpm BP Resting BP: 105/79 mmHg Max BP: 135/80 mmHg Recovery BP: 124.0/87.0 mmHg ECG Resting ECG: NSR, NS-T abnormalities in inferior leads, low voltages in precordial leads Stress ECG: No significant ST changes Arrhythmia: None Clinical Exercise duration: 04:00 min Highest Stage Achieved: Exercise capacity: 1.0 METs Stress ECG Conclusion During lexiscan pt experinced mild SOA, stomach and head discomfort. No CP noted. No arrhythmias noted. No significant ST changes. Conclusion: Unremarkable lexiscan stress. Myoview images reported separately. Test Summary REST . . . . . . . Sitting REST 04:10 . . 76 . 105/ 79 . . Stage 1 01:00 . . 84 . . . . Stage 2 01:00 . . 98 . 116/ 86 . . Stage 3 01:00 . . 99 . 135/ 80 . . Stage 4 01:00 . . 86 . 118/ 77 . Stop exercise at 04:00 RECOVERY 01:00 . . 82 . . . . RECOVERY 02:00 . . 89 . 124/ 87 . . RECOVERY 03:00 . . 88 . 124/ 87 . . RECOVERY 04:00 . . 85 . 125/ 82 . . RECOVERY 04:20 . . 87 . 125/ 82 . . Electronically signed by : Gwen Honeycutt MD 02/23/2023 19:34:19
--- NOTE | 2023-02-21 12:11 | NM_ITS ---
APPROVED REPORT Exam: Nuclear Stress Test Indication: CHEST PAIN Patient Location: Outpatient Stress Tech: Emily STEVENSON Tech:Karlee Law BRADFORD RT(R)(N) Ht: 6 ft 0 in Wt: 250 lbs HR: 76 bpm BP: 105/79 mmHg BSA: 2.34 m2 Rhythm: NSR History: CHEST PAIN Procedure: Patient received 0.4 mg of intravenous Lexiscan, resting heart rate 76 bpm, resting blood pressure 105/79 mmHg, with Lexiscan maximum heart rate achieved was 100 bpm which is 85 % of the maximum predicted heart rate and blood pressure was 135/80 mmHg. With Lexiscan, patient denied any complaint of chest pain. Patient was not able to lay on his abdomen for prones images. Cardiac Stress and Resting SPECT Images: Cardiac Stress and Resting SPECT images were obtained using technetium 99m Myoview 31.6 mCi stress and 9.54 mCi at rest. The patient could not lie on his abdomen. Therefore, prone stress imaging could not be performed. There is also significant GI radiotracer uptake adjacent to the inferior border of the LV wall. These may affect the diagnostic interpretation of the study findings. Resting and stress imaging in supine position demonstrate a medium-sized, moderate, predominantly fixed perfusion defect in the basal to mid inferior and inferoseptal LV wall. There is a region of surrounding reversibility towards the septal LV wall. Gated imaging demonstrates normal global LV systolic function. There is mild hypokinesis of the basal inferior LV wall. LVEF is calculated at 57%. Conclusion: Medium-sized, moderate, predominantly fixed perfusion defect in the basal to mid inferior and inferoseptal LV wall. There is a region of surrounding reversibility towards the septal LV wall. Findings are suggestive of partial reversible ischemia. Gated imaging demonstrates normal global LV systolic function. There is mild hypokinesis of the basal inferior LV wall. LVEF is calculated at 57%. Electronically signed by : Gwen Honeycutt MD 02/23/2023 19:38:07
[2023-02-21] MEDS: REGADENOSON 0.4MG/5ML SYRINGE 0.400000000000000022 MG IV (13:52)
[2023-02-21] MEDS: SODIUM CHLORIDE 0.9% 10ML SYR (RAD ONLY) 10 ML IV ×2 (13:52)
[2023-02-21] MEDS: ISOTOPE MYOVIEW (PER STUDY) 1 DOSE IV (13:52)
== END 2023-02-21 23:59 ==
LOC: RAD 12:11
PROVIDERS: PCP Nurse Practitioner Family; Visit Provider Nurse Practitioner Family
DX: R06.09 Other forms of dyspnea (principal); R07.89 Other chest pain
CPT/HCPCS: 78452; 93017; 93018; A9502; J2785

== ENCOUNTER 2023-03-11 11:55 | Outpatient (CLI) | payer MEDICAID, SELFPAY ==
[2023-03-11 12:21] LABS: Barbiturates Screen,Urine Negative ng/ml (<200)
[2023-03-11 12:22] LABS: Benzodiazepines Screen,Urine Negative ng/ml (<200)
[2023-03-11 12:23] LABS: Cocaine Screen,Urine Negative ng/ml (<300); Methadone Screen,Urine Negative ng/ml (<300)
[2023-03-11 12:24] LABS: Opiate Screen,Urine Positive ng/ml (<300)
[2023-03-11 12:25] LABS: Phencyclidine Screen,Urine Negative ng/ml (<25)
[2023-03-11 12:37] LABS: Amphetamine/Metha Screen,Urine Negative ng/ml (<1000)
[2023-03-11 12:38] LABS: Cannabinoid Screen,Urine Negative ng/ml (<50)
[2023-03-16 17:23] LABS: Gabapentin,Urine 91.2 ug/mL (.)
[2023-03-18 18:07] LABS: Alprazolam Negative (Cutoff=100); Benzodiazepines Positive ng/mL (Cutoff=100); Clonazepam Negative (Cutoff=100); Flurazepam Negative (Cutoff=100); Lorazepam Positive (.); Midazolam Negative (Cutoff=100); Temazepam Negative (Cutoff=100); Triazolam Negative (Cutoff=100)
== END 2023-03-11 23:59 ==
LOC: LAB.DROPOF 11:56
PROVIDERS: PCP Nurse Practitioner Family; Visit Provider Nurse Practitioner Family
DX: F41.9 Anxiety disorder, unspecified (principal); Z79.899 Other long term (current) drug therapy
CPT/HCPCS: 80307; 80346

== ENCOUNTER 2023-05-05 14:37 | Outpatient (CLI) | payer MEDICAID, SELFPAY ==
--- NOTE | 2023-05-05 14:38 | CT_ITS ---
FINAL REPORT CLINICAL HISTORY: lung cancer screening CURRENT SMOKER 1.5PPD X 38 YEARS COMPARISON: 04/23/2022 FINDINGS: CTDI vol (mGy): 2.90 DLP: 103.[address] images of the chest were obtained using the low-dose protocol for screening. There is no evidence of mediastinal or hilar mass or adenopathy. No axillary mass or adenopathy is identified. On the lung window images, no pulmonary mass or suspicious nodule is identified. A calcified granuloma is noted in the right midlung. IMPRESSION: Lung RADS category 1 . Recommend 12 month followup low-dose CT for further evaluation. Reviewed, Interpreted and Dictated by Patrick Coughlin III, MD Transcribed by Maddi Engle Authenticated and [facility]
== END 2023-05-05 23:59 ==
LOC: RAD 14:38
PROVIDERS: PCP Nurse Practitioner Family; Visit Provider Internal Medicine Pulmonary Disease
DX: F17.210 Nicotine dependence, cigarettes, uncomplicated (principal)
CPT/HCPCS: 71271